=== PATIENT | female | born 1995 | race Caucasian/White ===

== ENCOUNTER 2020-03-08 18:29 | Inpatient (IN) | payer BC, MEDICAID ==
[~2020-03-08] VITALS: Ht 167.6 cm; Wt 120.4 kg
[~2020-03-08 18:29] MED LIST: ALBUTEROL SULFATE 2.5 MG/3 ML NEB ONE
--- NOTE | 2020-03-08 18:56 | NUR ---
REPORT REC. PT IS CLEARING OWN SECRETIONS.
--- NOTE | 2020-03-08 18:57 | NUR ---
THIS IS A 24 YO FEMALE WHO PRESENTS TO THE ER FROM [facility] FOR ENT CONSULT. PT C/O SORE THROAT X A FEW DAYS. PT HAS HX OF SAME LAST YEAR. 3+ SWOLLEN TONSILS WITH EXUDATE NOTED BY RN. PT RECIEVED 4MG DECADRON AND UNASYN 3 MG FITTING ROOM ATTENDANT. PT HANDLING OWN SECRETIONS WELL. NO SOB NOTED. AFEBRILE UPON ARRIVAL. PT DENIES FEVERS AT HOME. PT DENIES COUGH. PT ON CONT BP, CARDIAC AND SPO2 MONITORS. CALL LIGHT WITHIN REACH. REPORT TO SANDEE RUBI WHO ASSUMED CARE OF PT.
[2020-03-08] MEDS ORDERED: LEVA15HF4 INH (19:07)
[2020-03-08] MEDS ORDERED: ONDANSETRON 2MG/ML, 2ML ONE (19:15)
[2020-03-08] MEDS ORDERED: MORPHINE SULFATE 4 MG/ML, 1ML ONE (19:15)
--- NOTE | 2020-03-08 19:18 | NUR ---
DISCUSSION WITH PT AND MD REGARDING PTS LISTED MORPHINE ALLERGY, NOTES ON CHART FROM PREVIOUS FACILITY STATE STHAT MORPHINE MAKES HER PARANOID AND SHORT OF BREATH, PT IS DENYING THIS CURRENTLY. WILL MEDICATED AND MONITOR, ABLE TO TOLERATE OWN SECRETIONS, PT HAS BEEN NPO SHE STATES SINCE THIS AM
[2020-03-08] MEDS ORDERED: HUMIRA (19:20)
[2020-03-08] MEDS ORDERED: ONDANSETRON 2MG/ML, 2ML IVPush ONE (19:30)
[2020-03-08] MEDS ORDERED: MORPHINE SULFATE 4 MG/ML, 1ML IVPush PRN (19:30)
--- NOTE | 2020-03-08 19:38 | NUR ---
PT REPORTS GOOD RELIEF PAIN AND IS HAVING NO ADVERSE EFFECTS OF MORPHINE AT THIS TIME.
[2020-03-08] MEDS ORDERED: SODIUM CHLORIDE FLUSH 10ML SYR IVF PRN (20:30)
--- NOTE | 2020-03-08 20:36 | NUR ---
PER ER MD HANKS NO COVID SWAB
--- NOTE | 2020-03-08 20:50 | NUR ---
ATTEMPT TO CALL REPOT AT THIS TIME, NURSE UNAVAILABLE, WILL RETRY.
[2020-03-08] MEDS ORDERED: ONDANSETRON 2MG/ML, 2ML IVPush PRN (21:30)
[2020-03-08] MEDS ORDERED: DOCUSATE 100 MG CAPSULE PO PRN (21:30)
[2020-03-08] MEDS ORDERED: ACETAMINOPHEN 325 MG TABLET PO PRN (21:30)
[2020-03-08] MEDS ORDERED: DEXAMETHASONE 10 MG in SODIUM CHLORIDE 0.9% 50 ML IV SCH (21:30)
[2020-03-08] MEDS ORDERED: KETOROLAC 30 MG/1 ML IM PRN (21:30)
[2020-03-08] MEDS ORDERED: ALBUTEROL SULFATE 2.5 MG/3 ML NPPB PRN (21:30)
[2020-03-08] MEDS ORDERED: hydrALAzine 20 MG/ML, 1ML IVPush PRN (21:30)
[2020-03-08] MEDS: LACTATED RINGERS 1,000 ML IV SCH (22:30)
[2020-03-08] MEDS ORDERED: ALBUTEROL HFA 90 MCG/SPRAY INH PRN (22:30)
[2020-03-08] MEDS: DEXAMETHASONE 4 MG/ML, 1ML IV SCH (23:10)
[2020-03-08] MEDS: FAMOTIDINE 20 MG/2 ML IVPush SCH (23:10)
[2020-03-08] MEDS: AMPICILLIN/SULBACTAM 3 GM in SODIUM CHLORIDE 0.9% 100 ML IV SCH (23:11)
[2020-03-08] MEDS: morphine SULFATE 10 MG/ML, 1ML IVPush PRN (23:12)
[2020-03-08 23:20] VITALS: BP 122/74
[2020-03-09 00:17] LABS: HCG UR SG 1.025 (1.003-1.030)
[2020-03-09 02:13] VITALS: BP 128/76
[2020-03-09] MEDS: morphine SULFATE 10 MG/ML, 1ML IVPush PRN ×2 (04:25→08:21)
[2020-03-09] MEDS: DEXAMETHASONE 4 MG/ML, 1ML IV SCH ×2 (04:25→11:19)
[2020-03-09] MEDS: AMPICILLIN/SULBACTAM 3 GM in SODIUM CHLORIDE 0.9% 100 ML IV SCH ×2 (04:26→11:19)
[2020-03-09 06:25] LABS: BASOPHILS # (AUTO) 0.03 x10^3/uL (0-0.1); BASOPHILS % (AUTO) 0 % (0-1); EOSINOPHILS % (AUTO) 0 % (1-7); LYMPHOCYTES # (AUTO) 1.91 x10^3/uL (1-3.4); LYMPHOCYTES % (AUTO) 14 % (22-44); MD NO; MEAN CORPUSCULAR HEMOGLOBIN 30.9 pg (27.0-34.8); MEAN CORPUSCULAR HGB CONC 33.2 g/dL (32.4-35.8); MEAN PLATELET VOLUME 9.6 fL (7.4-10.4); MONOCYTES # (AUTO) 0.14 x10^3/uL (0.2-0.8); MONOCYTES % (AUTO) 1 % (2-9); NEUTROPHILS # (AUTO) 12.03 x10^3/uL (1.8-6.8); NEUTROPHILS % (AUTO) 85 % (42-75); PLATELET COUNT 248 x10^3/uL (130-400); RED BLOOD COUNT 4.83 x10^6/uL (3.82-5.3); RED CELL DISTRIBUTION WIDTH 13.9 % (9.6-15.2)
[2020-03-09 06:43] LABS: CHLORIDE 111 mmol/L (98-107)
[2020-03-09 06:53] LABS: ANION GAP 8 mmol/L (5-15); CALCIUM 9.1 mg/dL (8.5-10.1); CREATININE 0.58 mg/dL (0.55-1.02)
[2020-03-09 07:55] VITALS: BP 126/66
[2020-03-09] MEDS: LACTATED RINGERS 1,000 ML IV SCH (08:20)
[2020-03-09] MEDS: FAMOTIDINE 20 MG/2 ML IVPush SCH (08:20)
[2020-03-09] MEDS ORDERED: PRED10TA PO (13:33)
[2020-03-09] MEDS ORDERED: AMOX1TAB64 PO (13:33)
[2020-03-09 14:09] VITALS: BP 128/81
== END 2020-03-09 16:04 | disposition home or self-care (01) | DRG 153 ==
LOC: ED 20:27 → EDIP 21:10 → 3N 21:15 → DCLOUNGE 03-09 15:56
PROVIDERS: ADMIT Internal Medicine; ATTEND Hospitalist
DX: J03.90 Acute tonsillitis, unspecified (principal); Z68.41 Body mass index [BMI] 40.0-44.9, adult; J45.20 Mild intermittent asthma, uncomplicated; E28.2 Polycystic ovarian syndrome; F17.210 Nicotine dependence, cigarettes, uncomplicated; L73.2 Hidradenitis suppurativa; E66.01 Morbid (severe) obesity due to excess calories; Z91.040 Latex allergy status; Z82.0 Family history of epilepsy and other diseases of the nervous system; Z80.9 Family history of malignant neoplasm, unspecified; Z79.51 Long term (current) use of inhaled steroids
CPT/HCPCS: 36415; 96374; 96375; 96376; 99285; J3490; 80048; 81025; 83036; 85025; 86308; G0378; J0295; J1100; J2405; J2270; J7120